=== PATIENT | female | born 1945 | race Caucasian/White ===

== ENCOUNTER 2018-01-19 11:44 | Emergency (ER) | payer MEDICARE ==
[2018-01-19] MEDS ORDERED: Ondansetron ODT 4 MG TAB ONE (12:14)
== END 2018-01-19 12:27 | disposition home or self-care (01) ==
LOC: BURERS 11:44
DX: R11.0 Nausea (principal); R19.7 Diarrhea, unspecified; Z79.899 Other long term (current) drug therapy; Z79.82 Long term (current) use of aspirin
CPT/HCPCS: 99283; Q0162